=== PATIENT | male | born 1955 | race Caucasian/White ===

== ENCOUNTER 2019-04-02 12:03 | Inpatient (IN) ==
[2019-04-05 11:29] LABS: Basophils # 0.1 10*3/uL (0.0-0.2); Basophils % 0.8 % (0.0-0.8); Eosinophils # 0.2 10*3/uL (0.0-0.87); Hematocrit 40.9 VOL% (42.0-52.0); Hemoglobin 13.8 GM/DL (14.0-18.0); Immature Granulocytes % 0.1 %; Immature Granulocytes Absolute 0.01 #; Lymphocytes # 3.7 10*3/uL (1.4-4.0); Lymphocytes % 43.1 % (21.2-54.2); Mean Corpuscular HGB Conc 33.7 GM/DL (32-36); Mean Corpuscular Volume 90.7 FL (87-102); Mean Platelet Volume 10.8 FL (9.6-12.0); Monocytes % 5.2 % (1.7-12.7); Neutrophils % 48.8 % (38.7-73.9); Platelet Count 311 T/CUMM (130-400); Red Blood Count 4.51 MC/CUMM (3.8-5.5); Red Cell Distribution Width 13.4 % (9.3-17.3); White Blood Count 8.5 T/CUMM (4-12)
[2019-04-05 11:46] LABS: Calcium 8.5 MG/DL (8.5-10.1); Osmolality,Calculated 275.3 MOS/KG (273-304)
[2019-04-05] MEDS ORDERED: MAGNESIUM SULF RIDER 2 GM in PREMIX 1 EACH IV ONE (13:00)
[2019-04-05] MEDS: POTASSIUM CHLORIDE 20 MEQ TABLET PO SCH ×2 (14:39→18:02)
[2019-04-05] MEDS: PANTOPRAZOLE 40 MG TABLET PO SCH (14:40)
[2019-04-05] MEDS: GABAPENTIN 400 MG CAPSULE PO SCH ×2 (15:10→21:18)
[2019-04-05] MEDS ORDERED: CLORAZEPATE 3.75 MG TABLET PO PRN (15:16)
[2019-04-05] MEDS ORDERED: PROMETHAZINE 25 MG/1 ML VIAL IM PRN (15:31)
[2019-04-05] MEDS ORDERED: ACETAMINOPHEN 325 MG TABLET PO PRN (15:31)
[2019-04-05] MEDS ORDERED: ONDANSETRON 4 MG/2 ML VIAL IV PRN (15:31)
[2019-04-05] MEDS: COLESTIPOL 1 GM TABLET PO SCH (21:18)
[2019-04-05] MEDS ORDERED: POTASSIUM CHLORIDE 20 MEQ TABLET PO ONE (22:00)
[2019-04-06] MEDS: POTASSIUM CHLORIDE RIDER 10 MEQ in PREMIX 1 EACH IV SCH ×8 (00:38→09:49)
[2019-04-06 06:01] LABS: Calcium 8.3 MG/DL (8.5-10.1); Osmolality,Calculated 276.3 MOS/KG (273-304)
[2019-04-06] MEDS ORDERED: CETIRIZINE 10 MG TABLET PO SCH (09:00)
[2019-04-06] MEDS ORDERED: ROSUVASTATIN 10 MG TABLET PO SCH (09:00)
[2019-04-06] MEDS ORDERED: POTASSIUM CHLORIDE 10 MEQ TABLET PO SCH (09:00)
[2019-04-06] MEDS ORDERED: MULTIVITAMIN (CENTRUM) TABLET PO SCH (09:00)
[2019-04-06] MEDS ORDERED: fentaNYL 100 MCG/2 ML VIAL ONE (09:56)
[2019-04-06] MEDS ORDERED: LIDOCAINE 2% 5 ML VIAL ONE (09:56)
[2019-04-06] MEDS ORDERED: SEVOFLURANE 1 UNIT/15 MINUTE INH ONE (09:56)
[2019-04-06] MEDS ORDERED: ESMOLOL 100 MG/10 ML VIAL IV ONE (09:56)
[2019-04-06] MEDS ORDERED: propofoL 200 MG/20 ML VIAL IV ONE (09:56)
[2019-04-06] MEDS ORDERED: PHENYLEPHRINE 1 MG/10 ML SYRINGE IV ONE (09:57)
[2019-04-06] MEDS ORDERED: SUCCINYLCHOLINE 200 MG/10 ML VIAL ONE (09:57)
[2019-04-06] MEDS ORDERED: ROCURONIUM 100 MG/10 ML VIAL IV ONE (09:57)
[2019-04-06] MEDS: LABETALOL 20 MG/4 ML SYRINGE IV PRN ×3 (10:02→10:34)
[2019-04-06] MEDS ORDERED: LABETALOL 100 MG/20 ML VIAL IV ONE (10:02)
[2019-04-06] MEDS: COLESTIPOL 1 GM TABLET PO SCH (12:37)
[2019-04-06] MEDS: GABAPENTIN 400 MG CAPSULE PO SCH (12:37)
[2019-04-06] MEDS: PANTOPRAZOLE 40 MG TABLET PO SCH (12:38)
[2019-04-06 14:51] VITALS: BP 130/77
== END 2019-04-06 14:55 | disposition home or self-care (01) | DRG 641 ==
LOC: N.3E 04-05 08:06
PROVIDERS: ADMIT Otolaryngology; ATTEND Otolaryngology

== ENCOUNTER 2020-01-14 06:42 | Observation (INO) ==
[2020-01-14] MEDS ORDERED: SODIUM CHLORIDE 0.9% 1,000 ML IV STA (07:34)
[2020-01-14] MEDS ORDERED: POTASSIUM CHLORIDE 20 MEQ TABLET PO SCH (08:30)
[2020-01-14] MEDS ORDERED: GLUCAGON 1 MG VIAL IM PRN (08:39)
[2020-01-14] MEDS ORDERED: ACETAMINOPHEN 325 MG TABLET PO PRN (08:39)
[2020-01-14] MEDS ORDERED: ONDANSETRON 4 MG/2 ML VIAL IV PRN (08:39)
[2020-01-14] MEDS ORDERED: DEXTROSE 50% 25 GM/50 ML VIAL IV PRN (08:39)
[2020-01-14 08:42] LABS: Basophils % 0.1 % (0.0-0.8); Hematocrit 41.3 VOL% (42.0-52.0); Hemoglobin 14.9 GM/DL (14.0-18.0); Immature Granulocytes % 0.4 %; Immature Granulocytes Absolute 0.05 #; Lymphocytes # 0.8 10*3/uL (1.4-4.0); Lymphocytes % 6.9 % (21.2-54.2); Mean Corpuscular HGB Conc 36.1 GM/DL (32-36); Mean Corpuscular Volume 89.2 FL (87-102); Mean Platelet Volume 10.3 FL (9.6-12.0); Monocytes % 5.1 % (1.7-12.7); Neutrophils % 87.5 % (38.7-73.9); Platelet Count 355 T/CUMM (130-400); Red Blood Count 4.63 MC/CUMM (3.8-5.5); White Blood Count 11.6 T/CUMM (4-12)
[2020-01-14] MEDS: POTASSIUM CHLORIDE RIDER 10 MEQ in PREMIX 1 EACH IV PRN ×2 (08:42→23:10)
[2020-01-14 09:04] LABS: Anisocytosis 1+; Platelet Estimate Normal
[2020-01-14 09:18] LABS: Bilirubin,Urine Negative (Negative); Blood, Urine Small mg/dL (Negative); Glucose,Urine (UA) Negative (Negative); Ketones,Urine Negative (Negative); Nitrite,Urine Negative (Negative); Protein,Urine Negative; RBC,Urine <1 /HPF (0-4); Urine Appearance CLEAR (Clear); Urine Color Straw (Yellow); Urine Specific Gravity 1.003 (1.001-1.035); Urine Urobilinogen < 2.0 EU/DL (0.2-1.0); WBC,Urine 1 /HPF (0-6)
[2020-01-14 09:41] LABS: Calcium 9.8 MG/DL (8.5-10.1); Osmolality,Calculated 274.7 MOS/KG (273-304)
[2020-01-14] MEDS: ENOXAPARIN 40 MG/0.4 ML SYRINGE SUBCUT SCH (11:54)
[2020-01-14] MEDS: POTASSIUM CHLORIDE RIDER 10 MEQ in PREMIX 1 EACH IV SCH ×3 (12:32→14:33)
[2020-01-14] MEDS: SODIUM CHLOR 0.9% KCL 40 MEQ 40 MEQ/1,000 ML BAG IV SCH ×2 (12:33→21:01)
[2020-01-14 12:36] VITALS: BP 134/72
[2020-01-14] MEDS: ROSUVASTATIN 10 MG TABLET PO SCH (13:25)
[2020-01-14] MEDS: PANTOPRAZOLE 40 MG TABLET PO SCH (13:26)
[2020-01-14] MEDS: COLESTIPOL 1 GM TABLET PO SCH ×2 (13:26→20:30)
[2020-01-14] MEDS: CETIRIZINE 10 MG TABLET PO SCH (13:26)
[2020-01-14] MEDS: MULTIVITAMIN (CENTRUM) TABLET PO SCH (13:26)
[2020-01-14] MEDS: POTASSIUM CHLORIDE 20 MEQ TABLET PO SCH ×3 (13:26→20:30)
[2020-01-14] MEDS: NICOTINE 21 MG/24 HR PATCH TRANSDERM PRN (13:29)
[2020-01-14] MEDS: GABAPENTIN 400 MG CAPSULE PO SCH ×4 (13:34→20:30)
[2020-01-14 22:52] LABS: Calcium 8.3 MG/DL (8.5-10.1); Osmolality,Calculated 288.6 MOS/KG (273-304)
[2020-01-15] MEDS: POTASSIUM CHLORIDE RIDER 10 MEQ in PREMIX 1 EACH IV PRN ×4 (00:08→05:17)
[2020-01-15] MEDS: POTASSIUM CHLORIDE 20 MEQ TABLET PO SCH ×5 (00:08→22:04)
[2020-01-15 01:50] LABS: Basophils % 0.2 % (0.0-0.8); Hematocrit 35.6 VOL% (42.0-52.0); Hemoglobin 12.4 GM/DL (14.0-18.0); Immature Granulocytes % 0.4 %; Immature Granulocytes Absolute 0.04 #; Lymphocytes # 1.1 10*3/uL (1.4-4.0); Lymphocytes % 10.7 % (21.2-54.2); Mean Corpuscular HGB Conc 34.8 GM/DL (32-36); Mean Corpuscular Volume 91.3 FL (87-102); Monocytes % 5.9 % (1.7-12.7); Neutrophils % 82.8 % (38.7-73.9); Platelet Count 303 T/CUMM (130-400); Red Cell Distribution Width 13.5 % (9.3-17.3); White Blood Count 10.7 T/CUMM (4-12)
[2020-01-15 02:17] LABS: Albumin 2.8 G/DL (3.4-5.0); Bilirubin,Total 0.4 MG/DL (0.2-1.0); Calcium 8.4 MG/DL (8.5-10.1); Total Protein 6.3 G/DL (6.4-8.3)
[2020-01-15 02:29] LABS: Osmolality,Calculated 288.6 MOS/KG (273-304)
[2020-01-15] MEDS ORDERED: SODIUM CHLOR 0.45% KCL 20 MEQ 20 MEQ/1,000 ML BAG IV SCH (08:30)
[2020-01-15 08:41] LABS: Calcium 8.5 MG/DL (8.5-10.1)
[2020-01-15 08:57] LABS: Osmolality,Calculated 290.4 MOS/KG (273-304)
[2020-01-15] MEDS: ROSUVASTATIN 10 MG TABLET PO SCH (10:30)
[2020-01-15] MEDS: lisinopriL 5 MG TABLET PO SCH (10:30)
[2020-01-15] MEDS: POTASSIUM CHLORIDE RIDER 10 MEQ in PREMIX 1 EACH IV SCH ×6 (10:30→20:03)
[2020-01-15] MEDS: MULTIVITAMIN (CENTRUM) TABLET PO SCH (10:30)
[2020-01-15] MEDS: CETIRIZINE 10 MG TABLET PO SCH (10:30)
[2020-01-15] MEDS: ENOXAPARIN 40 MG/0.4 ML SYRINGE SUBCUT SCH (10:30)
[2020-01-15] MEDS: COLESTIPOL 1 GM TABLET PO SCH ×2 (10:30→22:04)
[2020-01-15] MEDS: GABAPENTIN 400 MG CAPSULE PO SCH ×3 (10:30→22:04)
[2020-01-15] MEDS: PANTOPRAZOLE 40 MG TABLET PO SCH (10:30)
[2020-01-15] MEDS: NICOTINE 21 MG/24 HR PATCH TRANSDERM PRN (10:40)
[2020-01-15] MEDS: SODIUM CHLOR 0.9% KCL 40 MEQ 40 MEQ/1,000 ML BAG IV SCH (12:15)
[2020-01-15 13:32] LABS: Calcium 8.4 MG/DL (8.5-10.1); Osmolality,Calculated 287.6 MOS/KG (273-304)
[2020-01-15] MEDS: POTASSIUM CHLORIDE INJ 40 MEQ in SODIUM CHLORIDE 0.45% 1,000 ML IV SCH (16:12)
[2020-01-16 01:16] LABS: Calcium 8.2 MG/DL (8.5-10.1); Osmolality,Calculated 283.8 MOS/KG (273-304)
[2020-01-16] MEDS: POTASSIUM CHLORIDE RIDER 10 MEQ in PREMIX 1 EACH IV PRN (01:31)
[2020-01-16 04:23] LABS: Calcium 8.1 MG/DL (8.5-10.1); Osmolality,Calculated 283.8 MOS/KG (273-304)
[2020-01-16] MEDS: POTASSIUM CHLORIDE INJ 40 MEQ in SODIUM CHLORIDE 0.45% 1,000 ML IV SCH (06:48)
[2020-01-16] MEDS: ROSUVASTATIN 10 MG TABLET PO SCH (10:05)
[2020-01-16] MEDS: MULTIVITAMIN (CENTRUM) TABLET PO SCH (10:05)
[2020-01-16] MEDS: lisinopriL 5 MG TABLET PO SCH (10:06)
[2020-01-16] MEDS: CETIRIZINE 10 MG TABLET PO SCH (10:06)
[2020-01-16] MEDS: POTASSIUM CHLORIDE 20 MEQ TABLET PO SCH (10:06)
[2020-01-16] MEDS: GABAPENTIN 400 MG CAPSULE PO SCH (10:07)
[2020-01-16] MEDS: PANTOPRAZOLE 40 MG TABLET PO SCH (10:07)
[2020-01-16] MEDS: NICOTINE 21 MG/24 HR PATCH TRANSDERM PRN (10:07)
[2020-01-16] MEDS: COLESTIPOL 1 GM TABLET PO SCH (10:07)
[2020-01-16] MEDS: ENOXAPARIN 40 MG/0.4 ML SYRINGE SUBCUT SCH (10:08)
== END 2020-01-16 13:33 | disposition home or self-care (01) ==
LOC: N.EDINP 06:42 → N.ED 06:42 → N.ICU 11:10
PROVIDERS: ADMIT Internal Medicine; ATTEND Internal Medicine